=== PATIENT | female | born 1960 | race Caucasian/White ===

== ENCOUNTER → 2016-11-30 | Outpatient (CLI) | payer BC ==
[~2016-11-30] MED LIST: CEPH500C PO; SULF800T23 PO
[2016-11-30 11:29] LABS: ALT/SGPT 29 U/L (12-78); AST/SGOT 16 U/L (15-37); BLOOD UREA NITROGEN 14 mg/dl (7-18); BUN/CREATININE RATIO 19.5 (10-20); CARBON DIOXIDE 27 mmol/L (21-32); CHLORIDE 104 mmol/L (98-107); CREATININE 0.71 mg/dl (0.60-1.20); GLUCOSE 98 mg/dl (70-99); POTASSIUM 4.4 mmol/L (3.5-5.1); SODIUM 140 mmol/L (136-145)
[2016-11-30 11:32] LABS: ALB/GLOB RATIO 1.1 (0.9-2); ALKALINE PHOSPHATASE 94 U/L (45-117); CHOLESTEROL 287 mg/dl (0-200); CHOLESTEROL/HDL RATIO 3.4; HDL CHOLESTEROL 85 mg/dl; LDL CHOLESTEROL CALCULATED 173 mg/dl; TRIGLYCERIDES 145 mg/dl (0-150); VERY LOW DENSITY LIPOPROT CALC 29 mg/dl
[2016-11-30 11:57] LABS: ESTIMATED AVERAGE GLUCOSE 108 mg/dl; HA1C FLAG Normal (Normal)
== END | disposition home or self-care (01) ==
LOC: C.LAB1850 09:44
PROVIDERS: ATTEND Family Medicine
DX: E78.5 Hyperlipidemia, unspecified (principal); R73.01 Impaired fasting glucose; M85.80 Other specified disorders of bone density and structure, unspecified site; E55.9 Vitamin D deficiency, unspecified

== ENCOUNTER → 2017-02-16 | Outpatient (CLI) | payer BC ==
--- NOTE | 2017-02-16 08:56 | DIAGNOSTIC IMAGING REPORT ---
ABDOMINAL WALL ULTRASOUND CLINICAL HISTORY: R10.9 Abdominal [id number] evaluate for possible hernia COMPARISON STUDY: No previous studies for comparison. FINDINGS: Ultrasonographic evaluation of the focus of clinical concern within the left lower abdomen was performed. There is no ultrasonographic evidence of an abdominal wall hernia. IMPRESSION: No ultrasonographic evidence of an abdominal wall hernia Electronically signed by: Norberto Fischer M.D. 02/16/2017 8:54 AM Dictated Date/Time: 02/16/2017 8:53 AM
== END | disposition home or self-care (01) ==
LOC: C.ULTR 08:29
PROVIDERS: ATTEND Nurse Practitioner Family
DX: R10.9 Unspecified abdominal pain (principal)

== ENCOUNTER → 2017-06-09 | Outpatient (CLI) | payer BC ==
[2017-06-09 10:20] LABS: ESTIMATED AVERAGE GLUCOSE 111 mg/dl; HA1C FLAG Normal (Normal)
[2017-06-09 10:38] LABS: ALT/SGPT 22 U/L (12-78); AST/SGOT 12 U/L (15-37); BLOOD UREA NITROGEN 13 mg/dl (7-18); BUN/CREATININE RATIO 19.2 (10-20); CALCIUM 8.8 mg/dl (8.5-10.1); CARBON DIOXIDE 30 mmol/L (21-32); CHLORIDE 106 mmol/L (98-107); CREATININE 0.66 mg/dl (0.60-1.20); GLUCOSE 95 mg/dl (70-99); POTASSIUM 4.3 mmol/L (3.5-5.1); SODIUM 139 mmol/L (136-145)
[2017-06-09 10:41] LABS: ALB/GLOB RATIO 1.1 (0.9-2); ALKALINE PHOSPHATASE 83 U/L (45-117); CHOLESTEROL 265 mg/dl (0-200); CHOLESTEROL/HDL RATIO 3.4; HDL CHOLESTEROL 79 mg/dl; LDL CHOLESTEROL CALCULATED 161 mg/dl; TRIGLYCERIDES 124 mg/dl (0-150); VERY LOW DENSITY LIPOPROT CALC 25 mg/dl
== END | disposition home or self-care (01) ==
LOC: C.LAB1850 09:04
PROVIDERS: ATTEND Family Medicine
DX: E78.5 Hyperlipidemia, unspecified (principal); R73.01 Impaired fasting glucose; E55.9 Vitamin D deficiency, unspecified; Z11.59 Encounter for screening for other viral diseases

== ENCOUNTER → 2017-08-01 | Outpatient (CLI) | payer BC ==
--- NOTE | 2017-08-02 07:35 | MAMMOGRAPHY REPORT ---
BILATERAL DIGITAL SCREENING MAMMOGRAM WITH CAD: 08/01/2017 CLINICAL HISTORY: Routine screening. Patient has no complaints. TECHNIQUE: Bilateral CC and MLO views were obtained. Current study was also evaluated with a Compute r Aided Detection (CAD) system. COMPARISON: Comparison is made to exams dated: 07/22/2016 mammogram, 05/21/2014 mammogram, 06/13/2012 ma mmogram, 08/20/2009 mammogram, 06/03/2006 mammogram, and 05/23/2004 mammogram - [facility]. BREAST COMPOSITION: There are scattered areas of fibroglandular density in both breasts. FINDINGS: There are stable intramammary lymph nodes in the right upper outer quadrant. No suspiciou s mass, architectural distortion or cluster of microcalcifications is seen. IMPRESSION: ACR BI-RADS CATEGORY 1: NEGATIVE There is no mammographic evidence of malignancy. A 1 year screening mammogram is recommended. The pa tient will receive written notification of the results. Approximately 10% of breast cancers are not detected with mammography. A negative mammographic report should not delay biopsy if a clinically suggestive mass is present. Meg Park M.D. ay/:08/01/2017 14:56:04 Aurist: Winnie Jensen, [facility] letter sent: Normal 1/2 BI-RADS Code: ACR BI-RADS Category 1: Negative
== END | disposition home or self-care (01) ==
LOC: C.MAMM 13:45
PROVIDERS: ATTEND Nurse Practitioner Family
DX: Z12.31 Encounter for screening mammogram for malignant neoplasm of breast (principal)

== ENCOUNTER → 2018-01-23 | Outpatient (CLI) | payer BC ==
[2018-01-23 12:32] LABS: HEMOGLOBIN A1C 5.5 % (4.5-5.6)
[2018-01-23 12:36] LABS: ALBUMIN 4.4 gm/dl (3.4-5.0); ALT/SGPT 25 U/L (12-78); BLOOD UREA NITROGEN 16 mg/dl (7-18); CALCIUM 9.6 mg/dl (8.5-10.1); CARBON DIOXIDE 27 mmol/L (21-32); GLUCOSE 93 mg/dl (70-99); POTASSIUM 4.3 mmol/L (3.5-5.1); SODIUM 137 mmol/L (136-145)
[2018-01-23 12:40] LABS: ALKALINE PHOSPHATASE 84 U/L (45-117); AST/SGOT 12 U/L (15-37); CHOLESTEROL 268 mg/dl (0-200); LDL CHOLESTEROL CALCULATED 179 mg/dl; TOTAL PROTEIN 7.8 gm/dl (6.4-8.2)
[2018-01-23 17:39] LABS: CREATININE RANDOM URINE 35.3 mg/dl
== END | disposition home or self-care (01) ==
LOC: C.LAB1850 10:07
PROVIDERS: ATTEND Nurse Practitioner Family
DX: E78.5 Hyperlipidemia, unspecified (principal); R73.01 Impaired fasting glucose; E66.3 Overweight; M85.80 Other specified disorders of bone density and structure, unspecified site

== ENCOUNTER → 2018-01-30 | Outpatient (CLI) | payer BC ==
--- NOTE | 2018-01-30 15:57 | DIAGNOSTIC IMAGING REPORT ---
R HIP UNILATERAL 2 VIEWS HISTORY: 57 years-old Female M25.551 Right hip [id number] acute right hip pain COMPARISON: None available TECHNIQUE: 2 views of the right hip FINDINGS: Mild degenerative changes of the right femoral acetabular joint. There is no acute fracture or dislocation identified. Degenerative changes are also seen within the pubic symphysis and right SI joint. Calcifications projecting over the right pelvis suggest phleboliths. IMPRESSION: No acute fracture or dislocation. The above report was generated using voice recognition software. It may contain grammatical, syntax or spelling errors. Electronically signed by: Nish Moser M.D. 01/30/2018 3:56 PM Dictated Date/Time: 01/30/2018 3:55 PM
== END | disposition home or self-care (01) ==
LOC: C.RAD1850 15:26
PROVIDERS: ATTEND Nurse Practitioner Family
DX: M25.551 Pain in right hip (principal)

== ENCOUNTER 2024-06-01 05:19 | Observation (INO) ==
--- NOTE | 2024-05-18 10:34 | PAT Medication Instructions ---
Medication Instructions Date of Service May 18, 2024 Home Medications Medication Instructions Recorded lisinopril 10 mg tablet 10 mg PO QAM #90 tabs 06/21/23 walker #1 ea 05/17/24 walker #1 ea 05/17/24 aspirin 325 mg tablet 325 mg PO UD PRN turmeric root extract 538 mg capsule 538 mg PO DAILY lisinopril 10 mg tablet 10 mg PO QAM ucepmppi-llbw-jogz 8 mg-folic 400 mcg-K 50 mcg-lutein 300 mcg tablet (Centrum Silver Women) 1 tab PO DAILY atorvastatin 20 mg tablet 20 mg PO QPM cholecalciferol (vitamin D3) 125 mcg (5,000 unit) tablet (Vitamin D3) 125 mcg PO DAILY clindamycin phosphate 1 % topical gel 1 appln topical UD PRN cyclobenzaprine 10 mg tablet 10 mg PO UD PRN lactobacillus combination no.4 3 billion cell capsule (Probiotic) 0 mmu cells PO DAILY mv-min-vit C-ascorb ksnswp-Lxc-Fuo-herbal #124 250 mg-1.25 mg lozenges 0 teena mucous membrane UD PRN naproxen 500 mg tablet 500 mg PO BID nicotine (polacrilex) 2 mg gum (Nicorette) 2 mg buccal UD Continue as directed cyclobenzaprine 10 mg tablet 10 mg PO UD PRN(if needed) ASK your surgeon for instructions naproxen 500 mg tablet 500 mg PO BID ASK your prescriber and surgeon aspirin 325 mg tablet 325 mg PO UD PRN nicotine (polacrilex) 2 mg gum (Nicorette) 2 mg buccal UD STOP taking 2 weeks before surgery (or as soon as possible if surgery is within 2 weeks) turmeric root extract 538 mg capsule 538 mg PO DAILY STOP taking 24 hours before surgery clindamycin phosphate 1 % topical gel 1 appln topical UD PRN DO NOT take the morning of surgery lisinopril 10 mg tablet 10 mg PO QAM njcdlhjh-yayo-cxwm 8 mg-folic 400 mcg-K 50 mcg-lutein 300 mcg tablet (Centrum Silver Women) 1 tab PO DAILY cholecalciferol (vitamin D3) 125 mcg (5,000 unit) tablet (Vitamin D3) 125 mcg PO DAILY lactobacillus combination no.4 3 billion cell capsule (Probiotic) 0 mmu cells PO DAILY mv-min-vit C-ascorb qidmuv-Eef-Pyp-herbal #124 250 mg-1.25 mg lozenges 0 teena mucous membrane UD PRN Take evening before surgery atorvastatin 20 mg tablet 20 mg PO QPM Other Notes NOTHING TO EAT OR DRINK AFTER MIDNIGHT. If you have any questions please call us at [phone] or [phone] or [phone] or [phone]
--- NOTE | 2024-05-22 10:49 | Anesthesiology Consultation ---
Date of Service May 22, 2024 Assessment & Plan (1) Encounter for pre-operative examination: - Infectious disease screening: Per assessment on 05/22/24: No known recent infectious disease contacts. Mild cold symptoms of cough/congestion with onset 05/17/24 have resolved as of [facility] visit 05/22/24. Patient was advised to call back if symptoms recur or development of new infectious-related symptoms prior to surgery. - Outpatient joint pathway: Per OR booking comments, plan for outpatient joint program. Patient seen at [facility] 05/22/24. Patient is an acceptable candidate to proceed as planned outpatient joint pathway pending perioperative course. Surgeon's office arranging post-op home management. - Hx anesthesia reaction: Severe headache after spinal anesthesia with remote pilonidal cyst surgery per patient. Chart Review Chart Review: Acceptable Risk for Surgery and Patient seen in Pre Admission Testing Teaching & Discussion Pre-Anesthesia Teaching/Discussion Notes: Instructed NPO after midnight before surgery,except medications with 15 cc of water. Medication instructions provid ed according to the [facility] guidelines. History Surgery Operation Date: 06/01/24 08:50 Proposed Procedures p OP: Right Total Hip Arthroplasty - Jeovany Mittal MD Height/Weight Height: 5 ft 3 in Weight: 88 kg Allergies Allergy/AdvReac Type Severity Reaction Status Date / Time No Known Allergies Allergy Verified 05/18/24 08:36 Medications Home Medications Medication Instructions Recorded Confirmed Last Taken aspirin 325 mg tablet 325 mg PO UD PRN Pain 08/01/19 05/18/24 04/10/23 turmeric root extract 538 mg 538 mg PO DAILY 08/01/19 05/18/24 04/10/23 capsule lisinopril 10 mg tablet 10 mg PO QAM #90 tabs 06/21/23 05/18/24 Unknown zsotubyw-musl-mexk 8 mg-folic 400 1 tab PO DAILY 11/14/23 05/18/24 Unknown mcg-K 50 mcg-lutein 300 mcg tablet (Centrum Silver Women) david #1 ea 05/17/24 05/17/24 Unknown walker #1 ea 05/17/24 05/17/24 Unknown atorvastatin 20 mg tablet 20 mg PO QPM 05/18/24 05/18/24 Unknown cholecalciferol (vitamin D3) 125 125 mcg PO DAILY 05/18/24 05/18/24 Unknown mcg (5,000 unit) tablet (Vitamin D3) clindamycin phosphate 1 % topical 1 appln topical UD PRN skin 05/18/24 05/18/24 Unknown gel irritation cyclobenzaprine 10 mg tablet 10 mg PO UD PRN muscle spasm 05/18/24 05/18/24 Unknown lactobacillus combination no.4 3 0 mmu cells PO DAILY 05/18/24 05/18/24 Unknown billion cell capsule (Probiotic) mv-min-vit C-ascorb 0 teena mucous membrane UD PRN Cold 05/18/24 05/18/24 Unknown lzpomf-Vqb-Nva-herbal #124 250 Symptoms mg-1.25 mg lozenges naproxen 500 mg tablet 500 mg PO BID pain 05/18/24 05/18/24 Unknown nicotine (polacrilex) 2 mg gum 2 mg buccal UD 05/18/24 05/18/24 Unknown (Nicorette) Past Medical History Medical History Arthritis Bulging lumbar disc Carpal tunnel syndrome on both sides Degenerative joint disease (DJD) of hip History of anxiety History of COVID-19 2021, 2022 History of diverticulosis History of miscarriage Per records Hyperlipidemia Hypertension Impaired fasting glucose Lumbar disc disease Follows with chiropractor Osteopenia Varicose veins of both lower extremities Venous reflux Per records Exercise / Class Metabolic Activity II 4-5 Yardwork/Stairs/Walk up hill Past Family History Family History Grandmother (Paternal) Coronary arteriosclerosis Grandfather (Paternal) Coronary arteriosclerosis Mother Osteoporosis Alzheimer disease Father Lung cancer Aunt Breast cancer Other No family history of adverse response to anesthesia Denies family history of Ovarian cancer Prostate cancer Myocardial infarction Colorectal cancer Past Surgical History Surgical History History of anesthesia reaction Severe headache after spinal anesthesia with remote pilonidal cyst surgery per patient History of colonoscopy History of dilatation and curettage History of excision of pilonidal cyst History of laparoscopy Excision of ectopic History of tonsillectomy and adenoidectomy Hx of cataract extraction R/L Past Anesthesia History No Family Hx of Anesthesia Complications and Other (Severe headache after spinal anesthesia with remote pilonidal cyst surgery per patient) History of PONV No Hx of PONV and No Hx of Motion Sickness Social History Smoking Status: Former smoker tobacco type: cigarettes Smoking cigarettes per day: chews nicorette gum/pre op education provided Do You Dip or Chew Tobacco: No Smoking End Date: Quit 30+ years ago Hx Alcohol Use: Yes Alcohol type: hard liquor alcohol intake frequency: 0-2 drinks per day (1-2 drinks/day) Hx Substance Use: No substance use type: does not use Review of Systems + snoring. No witnessed apneic events. Patient denies chest pain, shortness of breath, dyspnea on exertion, fever, chills, cough, wheezing, palpitations. Physical Exam Vital Signs BP 121/78 P 85 TEMP 98.1 SP02 97%RA RESP 16 Physical Mildly decreased cervical extension range of motion. Full TMJ range of motion. TMD > 3.5 finger breaths Mallampati Score III Dentition: intact, + crowns Lungs: clear throughout to auscultation Cardiac: regular rate and rhythm, no murmurs noted Spine: normal Carotid arteries: negative bruit Extremities: no LE edema Lab Results Anesthesia Preop Results Results Anesthesia Widget: WBC 4.36 K/ul (4.8-10.8) L 05/22/24 Hgb 13.5 g/dl (12.0-16.0) 05/22/24 Hct 40.3 % (37.0-47.0) 05/22/24 Plt 252 K/uL (130-400) 05/22/24 Na 139 mmol/L (136-145) 05/22/24 K 4.4 mmol/L (3.5-5.1) 05/22/24 Cl 103 mmol/L (98-107) 05/22/24 CO2 29 mmol/L (21-32) 05/22/24 BUN 14 mg/dl (6-23) 05/22/24 Creat 0.62 mg/dl (0.6-1.2) 05/22/24 Glucose Level 97 mg/dl (70-99(Fasting)) 05/22/24 PT 10.0 Seconds (9.0-12.0) 05/22/24 PTT 26 Seconds (21-31) 05/22/24 INR 0.9 (0.9-1.1) 05/22/24 Blood Type O Positive 05/22/24 Antibody Screen NEGATIVE 05/22/24 Testing Electrocardiogram Date: 05/22/24 NSR at 84bpm. "Normal ECG" Chest X-Ray Date: 05/22/24 Findings: + NAD
[2024-06-01] MEDS: ACETAMINOPHEN 500 MG TAB PO SCH ×2 (05:43→13:23)
[2024-06-01] MEDS: LR 60ML/HR IV SCH (05:44)
[2024-06-01] MEDS: METOCLOPRAMIDE HCL 10 MG TABLET PO SCH (05:44)
[2024-06-01] MEDS: FAMOTIDINE 20 MG TAB PO SCH (05:44)
[2024-06-01] MEDS: CeleBREX 200 MG CAP PO SCH (05:44)
[2024-06-01] MEDS: LR 500ML BOLUS, THEN 15ML/HR IV SCH (05:53)
[2024-06-01] MEDS ORDERED: MEPIVACAINE HCL 1.5% 30 ML VIAL ONE (06:16)
[2024-06-01] MEDS ORDERED: MIDAZOLAM HCL 1 MG/ML 2ML VIAL ONE ×2 (06:43→07:06)
--- NOTE | 2024-06-01 06:46 | History & Physical Bridge Note ---
Date of Service June 01, 2024 History & Physical Bridge Note I have examined the patient, reviewed the History & Physical and in the interval since the performance of the History & Physical I have noted the following changes of clinical significance: no changes noted
[2024-06-01] MEDS: TRANEXAMIC ACID 1,000 MG **IV Pre-op IV SCH (06:53)
[2024-06-01] MEDS: ceFAZolin 2000MG 2,000 MG/15 ML SYR IV SCH ×2 (07:00→15:13)
[2024-06-01] MEDS ORDERED: ATROPINE SULFATE 0.1 MG/ML 10ML SYR IV PRN (07:06)
[2024-06-01] MEDS ORDERED: ONDANSETRON INJ 2 MG/ML 2 ML VIAL IV PRN ×2 (07:06→10:21)
[2024-06-01] MEDS ORDERED: ePHEDrine sulfate 50 MG/ML AMP IV PRN (07:06)
[2024-06-01] MEDS ORDERED: KETAMINE HCL 10MG/ML SYR ONE (07:16)
[2024-06-01] MEDS ORDERED: PROPOFOL IV EMULSION 10 MG/ML 20 ML VIAL IV ONE ×3 (07:16→08:21)
[2024-06-01] MEDS ORDERED: GLYCOPYRROLATE 0.2 MG/ML VIAL ONE (07:16)
[2024-06-01] MEDS ORDERED: PHENYLEPHRINE 100MCG/ML 10ML SYR IV ONE (07:31)
[2024-06-01] MEDS: BUPIVACAINE/EPINEPHRINE 0.5% MPF 1:200,000 30 ML VIAL ONE (07:39)
[2024-06-01] MEDS ORDERED: PHENYLEPHRINE HCL 10 MG/ML VIAL ONE (07:42)
--- NOTE | 2024-06-01 09:06 | Operative Report ---
PG Post Operative Report Pre & Post Diagnosis Operation Date: 06/01/24 07:00 Pre-Op Diagnosis: Right Hip Degenerative Joint Disease Post-Op Diagnosis: Right Hip Degenerative Joint Disease I identified the patient and participated in the time-out.: Yes Procedure Operation Date: 06/01/24 07:00 Actual Procedures p Right Total Hip Arthroplasty, Uncemented(Right) - Jeovany Mittal MD Surgeon Jeovany Mittal MD Door Attendant Josee Man PA-C Estimated Blood Loss 150 Findings Consistent with Post-Op Diagnosis Specimens Right femoral head sent for pathology. Anesthesia Type Spinal MAC Complications none Disposition Accompanied Patient To Recovery: No Indications Patient is a 64-year-old female with a history of your history of increasing right hip pain discomfort is consequently worse over the past 6 months. She failed conservative measures. X-rays show advanced hip arthritis. She elected proceed with surgical treatment. Description of Procedure Operative implants consist of: 1 Biomet G7 size 50 mm acetabular shell. 2. 6.5 cancellous acetabular screws 135 mm length 120 mm length. 3 [place] hole rn radiology. 4 highly cross-linked polyethylene liner with a 50 mm outer diameter and 32 mm diameter. 5. DePuy Karaya size 12 KLA short neck 125 degree angle femoral stem. 6. +1/32 mm ceramic articular ball. The patient was taken the op room, identified, placed on the operating table in the supine position paraventricular appropriately padded. IV antibiotics by the anesthesia team. A spinal anesthetic and the implement holding area. Tavares catheter was placed in sterile fashion. The patient then placed in the left lateral decubitus position. An axillary roll was placed for distal Birkett position was used for positioning. The right hip and leg were then prepped and draped in usual sterile fashion. A posterolateral approach to the right hip was then performed to a curvilinear incision centered over the greater trochanter. Sharp dissection was got through subcutaneous tissue down to the IT band gluteal fascia to the IT band gluteal fascia incised longitudinally in line with skin incision. The underlying greater trochanter bursa was excised. The piriformis Rotators along with the posterior capsule was then released from the posterior aspect the hip as a single layer. Great care was taken throughout the procedure to protect the sciatic nerve at all times. The hip was internally rotated and dislocated.. A femoral neck osteotomy cut was made with Final Cut about 10 mm above the lesser trochanter. Femoral head was removed and sent for pathology. The femur was retracted anteriorly. Attention drawn the acetabulum. The acetabular labrum was excised. The pulmonary fat was excised. Sequential reaming the acetabular was then performed performed beginning with a size 43 and progressing up to 49. I need a little bit with a 50 reamer and then placed a 50 mm Biomet acetabular shell in about 4 degrees lateral opening and 20 degrees of anteversion. It was fixed with two 6.5 cancellous acetabular screws. Some anterior osteophytes removed. Trial liner was placed. Attention drawn the femur. The proximal femur was entered with a [employer] cutter followed by canal finder. Then broached beginning with size 8 and left breast up to 11. We did trial the hip with HemoCue 11 of this just a little bit loose. Therefore we broached up to 12 I could not quite get the broach the whole way down. We did trial the hip with the 11 implant and felt it stable with good leg lengths. I did elect to use a 12 stem as the 11 was a little bit loose. All trial implants were removed. An apex hole rn radiology was placed. Highly cross-linked polyethylene liner was placed. A size 12 KLA femoral stem short neck was placed. I could not get this the whole way down to the calcar cut. Left 3 mm/h. We placed a +5/32 mm ceramic articular ball and tried to locate the hip. I could not get adequately located. Therefore we switched this out for a +1/32 mm ceramic articular ball. Hip was located. It was fully stable. Leg lengths appeared equal. Soft tissue tension seemed appropriate. Attention drawn toward closing. Wounds irrigated coconuts pulsatile lavage solution. I did inject locally with 60 cc of half percent Marcaine with epinephrine. The posterior capsule was then repaired along with the external rotators through drill holes in the posterior trochanter with #2 Tycron suture. The IT band and gluteal fascia then closed with #1 PDS suture in running fashion the subcutaneous tissues were then closed in 3 layers including #2 Vicryl suture, #1 Vicryl suture and then 2-0 Dexon suture in a buried interrupted fashion. The skin was closed with skin dawson. A Prevena VAC dressing was applied as her soft tissue envelope was quite fit. T he patient was then taken off the operating table and placed on the transport bed. She was transferred to the recovery room in stable condition. Patient tolerated procedure well and there were no complications. Josee Man, my physician web press operator assistant, was present for the entire procedure. Her assistance was required for proper patient positioning, prepping and draping, surgical exposure, retraction, perform the technical details of the operation, placement of the implants, closure of the incision site and placement of sterile bandage. I attest to the content of the Intraoperative Record and any orders documented therein. Any exceptions are noted below.
[2024-06-01] MEDS: HYDROmorphone INJ 2 MG/ML SYR/VIAL IV PRN (09:50)
[2024-06-01] MEDS ORDERED: bisacodyL 10 MG SUPP PR PRN (10:21)
[2024-06-01] MEDS ORDERED: ALUMINUM/MAGNESIUM SUSP 30 ML UDC PO PRN (10:21)
[2024-06-01] MEDS ORDERED: CYCLOBENZAPRINE HCL 10 MG TAB PO PRN (10:21)
[2024-06-01] MEDS ORDERED: TURMERIC ROOT EXTRACT 538 MG PO SCH (10:21)
[2024-06-01] MEDS ORDERED: HYDROmorphone INJ 0.5 MG/0.5 ML SYR IV PRN (10:21)
[2024-06-01] MEDS ORDERED: SENNA 8.6 MG TAB PO SCH (10:21)
[2024-06-01] MEDS ORDERED: diphenhydrAMINE Capsule 25 MG CAP PO PRN (10:21)
[2024-06-01] MEDS ORDERED: METOCLOPRAMIDE HCL INJ 5 MG/ML 2 ML VIAL IV PRN (10:21)
[2024-06-01] MEDS ORDERED: NON-FORMULARY MEDICATION (Clindamycin Phosphate 1 % gel) TOP PRN (10:21)
[2024-06-01] MEDS ORDERED: NALOXONE HCL 0.4 MG/1 ML VIAL/CARP IV PRN (10:21)
[2024-06-01] MEDS ORDERED: MAGNESIUM HYDROXIDE SUSP 30 ML UDC PO PRN (10:21)
--- NOTE | 2024-06-01 10:37 | XRay Report ---
AP PELVIS, CROSSTABLE LATERAL RIGHT HIP History: Right total hip arthroplasty. Degenerative arthritis. Postop. FINDINGS: The patient is status post a right total hip arthroplasty. The hardware is intact. No fract ure or dislocation. Skin dawson are in place. IMPRESSION: Right total hip arthroplasty. No evidence for hardware complication ACT 112: Negative or not required by law. Electronically signed by: Freddie Lanier M.D. 06/01/2024 10:35 AM
[2024-06-01] MEDS: SODIUM CHLORIDE 0.9% 1,000 ML IV SCH (10:38)
--- NOTE | 2024-06-01 10:56 | Anesthesiology Progress Note ---
Date of Service June 01, 2024 Anesthesia Post Procedure Vital Signs Vital Signs: Temp Pulse Pulse Resp BP Pulse Ox O2 Del Method 06/01/24 10:42 36.5 C 72 18 145/79 H 96 Room Air 06/01/24 10:15 36.4 C L 78 16 147/86 H 97 Room Air 06/01/24 10:00 79 12 148/82 H 96 Room Air 06/01/24 09:50 82 16 153/87 H 98 Room Air 06/01/24 09:40 82 16 135/79 98 Room Air 06/01/24 09:30 36.3 C L 81 16 135/76 99 Room Air 06/01/24 09:20 36.4 C L 82 12 141/79 H 99 Room Air 06/01/24 09:10 85 16 137/81 97 Oxymask 06/01/24 09:00 79 18 132/68 100 Oxymask 06/01/24 08:54 36.2 C L 81 20 128/70 99 Oxymask 06/01/24 05:34 36.8 C 87 20 158/91 H 98 Room Air O2 Flow Rate 06/01/24 10:42 06/01/24 10:15 06/01/24 10:00 06/01/24 09:50 06/01/24 09:40 06/01/24 09:30 06/01/24 09:20 06/01/24 09:10 4 06/01/24 09:00 4 06/01/24 08:54 6 06/01/24 05:34 Pain Intensity Right Hip: Pain Intensity: 2 Transfer of Care Handoff Completed per policy Notes Mental Status: alert / awake / arousable and participated in evaluation Nausea / Vomiting: adequately controlled Pain: adequately controlled Airway Patency, RR, SpO2: stable & adequate BP & HR: stable & adequate Hydration State: stable & adequate Neuraxial Anesthesia: was administered and sensory block is resolving Anesthetic Complications: no major complications apparent and Pt Satisfied with anesthetic care
[2024-06-01 11:16] VITALS: RESP 16
[2024-06-01] MEDS: MULTIVITAMIN TAB PO SCH (11:18)
[2024-06-01] MEDS: CHOLECALCIFEROL 125 MCG (5,000 UNITS) TAB PO SCH (11:18)
[2024-06-01] MEDS: lisinopril 10 MG TAB PO SCH (11:18)
[2024-06-01] MEDS: ASPIRIN 81 MG ECTAB PO SCH (11:18)
[2024-06-01] MEDS: KETOROLAC TROMETHAMINE 15 MG/ML VIAL IV SCH (11:19)
[2024-06-01] MEDS: DOCUSATE SODIUM 100 MG CAP PO SCH (11:20)
[2024-06-01] MEDS: ADVANCED PROBIOTIC 625 MG CAPSULE PO SCH (11:20)
[2024-06-01] MEDS: NICOTINE POLACRILEX 2 MG GUM MT SCH (13:23)
[2024-06-01] MEDS: CEROVITE ADV FORMULA TAB PO SCH (13:23)
[2024-06-01] MEDS: TRANEXAMIC ACID / 0.7% NACL 1,000 MG/100 ML BAG IV SCH (15:14)
[2024-06-01] MEDS: ASCORBIC ACID 500 MG TAB PO SCH (17:28)
[2024-06-01] MEDS: traMADol HCL 50 MG TABLET PO PRN (17:32)
[2024-06-01] MEDS: ATORVASTATIN 20 MG TAB PO SCH (20:05)
[2024-06-01] MEDS: SENNA 8.6 MG TAB PO SCH (20:07)
[2024-06-02 06:40] LABS: Basophils # (auto) 0.02 K/uL (0.00-0.20); Basophils % (auto) 0.3 %; Eosinophils # (auto) 0.07 K/uL (0.00-0.50); Eosinophils % (auto) 1.1 %; Hematocrit (blood only) 34.6 % (37.0-47.0); Hemoglobin 11.7 g/dl (12.0-16.0); Immature Granulocytes # (auto) 0.02 K/uL (0.01-0.20); Immature Granulocytes % (auto) 0.3 %; Lymphocytes # (auto) 0.65 K/uL (1.20-3.40); Lymphocytes % (auto) 10.7 %; Mean Corpuscular Hemoglobin 31.9 pg (25.0-34.0); Mean Corpuscular Hgb Conc 33.8 g/dL (32.0-36.0); Mean Corpuscular Volume 94.3 fL (80.0-100.0); Mean Platelet Volume 10.1 fL (9.4-12.4); Monocytes # (auto) 0.53 K/uL (0.11-0.59); Monocytes % (auto) 8.7 %; Neutrophils # (auto) 4.81 K/uL (1.40-6.50); Neutrophils % (auto) 78.9 %; Platelet Count 174 K/uL (130-400); RDW Coefficient of Variation 12.2 % (11.5-14.5); RDW Standard Deviation 42.5 fL (36.4-46.3); Red Blood Count 3.67 M/uL (4.20-5.40)
[2024-06-02 06:58] LABS: BUN Creatinine Ratio 17.2 (10-20); Calcium 8.8 mg/dl (8.6-10.3); Creatinine Clr Calc Pharmacy 99.8 ml/min; Est GFR (African American) 111.3 ml/min; Est GFR (Non-African American) 96.1 ml/min
[2024-06-02 07:16] VITALS: BP 137/81; PULSE 81; TEMP 98.4; O2SAT 97
[2024-06-02] MEDS: dexAMETHasone 10 MG in SYRINGE 0 ML IV SCH (07:58)
--- NOTE | 2024-06-02 08:15 | Orthopedic Progress Note ---
Date of Service June 02, 2024 Assessment & Plan (1) Status post right hip replacement: Plan: 64-year-old female postop day 1 from right hip replacement doing pretty well. Pain is controlled. Hips located. She is neurologically intact. Plan: 1. DVT prophylaxis including Thiede teds, SCDs, aspirin twice daily. 2. PT/OT. Weight-bear as tolerated right total protocol. 3. Pain control doing okay with current pain regimen. 4. Disposition. Plan is to discharge to home with home health after therapy if she does okay in therapy today. Admission and Anticipated Discharge Date Admission Date: June 01, 2024 Subjective 64-year-old female postop day 1 from right hip replacement. She is doing pretty well. Has been up and out of bed several times. No chest pain or shortness of breath. Pain has been reasonably well-controlled. Physical Exam Physical Exam: Physical examination is a pleasant middle-age female. As she is in a better bedside chair looks comfortable. Examination of the right hip and leg reveals the Prevena VAC dressing in place. Thigh is soft and supple. Leg lengths are equal. Hips located. She is neurologically intact. Respiratory: normal respiratory effort, lungs clear to auscultation Cardiovascular: RRR, no murmur, no edema Gastrointestinal (Abdomen): normal bowel sounds, soft, nontender, no hepatosplenomegaly Results & Data Vital Signs (Past 12 Hours) Vital Signs Temp Pulse Resp BP Pulse Ox O2 Del Method 06/02/24 07:13 36.9 C 81 16 137/81 97 Room Air 06/02/24 03:34 36.8 C 75 16 145/78 H 98 Room Air 06/01/24 23:13 36.7 C 78 16 155/82 H 98 Room Air 06/01/24 21:16 Room Air Laboratory Results Hemoglobin is 11.7. Hematocrit is 34.6 electrolytes are stable.
== END 2024-06-02 11:09 | disposition home health service (06) ==
LOC: 3W 05:19 → ASU 05:19